=== PATIENT | female | born 1940 | race African-American/Black ===

== ENCOUNTER → 2019-10-25 | Day surgery (SDC) | payer BC ==
--- NOTE | 2019-10-22 11:16 | Opthalmology H&P ---
Ophthalmology H&P H&P Chief Complaint: decreased vision in left eye HPI Vision Affects Ability to: read, focus/use eyes together Past Ocular History: retinal problems - Drusen OU, other HPI Narrative Blurry vision Exam Visual Acuity: OD20/30 OS 20/160 Tension: OD15 OS 12 Eye Exam: normal OU: external exam, palpebral fissure-width, marginal reflex distance, levator function, corneas, anterior chambers; findings: lens - NS Cataracts OU, fundus exam - DRUSEN OU Assessment/Plan Treatment Plan: cataract extraction w/ lens implant Goals of Treatment: improvement of vision, enhance quality of life Attestation Attestation The risks and benefits of the surgery as well as alternative procedures were explained to the patient in detail. Emmanuel Cevallos MD Oct 22, 2019 11:16
--- NOTE | 2019-10-22 11:18 | Pre-Procedure Note/Attestation ---
Pre-Procedure Note/Attestation Complete Prior to Procedure Planned Procedure: left Procedure Narrative: Cataract extraction with IOL implant left eye Indications for Procedure Pre-Operative Diagnosis: Nuclear sclerotic cataract left eye Attestation I attest that I discussed the nature of the procedure; its benefits; risks and complications; and alternatives (and the risks and benefits of such alternatives ), prior to the procedure, with the patient (or the patient's legal sales representative public utilities). I attest that, if there was a reasonable possibility of needing a blood transfusion, the patient (or the patient's legal sales representative public utilities) was given the [facility] standardized written summary, pursuant to the Boris Tomas Blood Safety Act ([place] Health and Safety Code # 1645, as amended). I attest that I re-evaluated the patient just prior to the surgery and that there has been no change in the patient's H&P, except as documented below: Emmanuel Cevallos MD Oct 22, 2019 11:18
[2019-10-25] VITALS (10 sets, daily range): BP systolic 127–154; BP diastolic 70–82
[~2019-10-25] VITALS: Ht 157.5 cm; Wt 74.8 kg
[~2019-10-25] MED LIST: ALBUTEROL SULF8.5 G1 INH; AMLODIPINE BESYL5 MG ORAL; Akten 3.5% 1ml Btl LEFT EYE ONE; BSS 15ml BTL ONE; BSS 500ml btl ONE; BUTALB-ACETAMI1 EAC1 PO; DiphenhydrAMINE 50mg/ml Inj IVP PRN; EPINEPHrine 1mg/1ml Amp ONE; FLOVENT2 PUFF2 INH; GABAPENTIN100 MG ORAL; LOSARTAN POTASS25 MG ORAL; LR 1000ml 1,000 ML IVLG SCH; LR 1000ml ONE; NS Irrig 1000ml ONE; Povidone-Iodine 5% opth solution ONE; Proparacaine 0.5% Opth Soln 15ml LEFT EYE ONE; SIMVASTATIN20 MG ORAL; Sodium Hyaluronate 10 mg/ml 0.85ml ONE; Sterile Water Irrig 1000ml IRRIG ONE; Tetracaine 0.5% Opth 4ml Soln LEFT EYE ONE; Vit D PO; fentaNYL 100 mcg/2 mL IV ONE; fentaNYL 100 mcg/2 mL IV PRN
[2019-10-25] MEDS: Tobramycin Op Soln 0.3% 5ml LEFT EYE SCH ×3 (08:03→08:33)
[2019-10-25] MEDS: Phenylephrine 10% Opth Soln 5ml LEFT EYE SCH ×3 (08:03→08:32)
[2019-10-25] MEDS: Tropicamide 1% Opth 15ml Soln LEFT EYE SCH ×3 (08:03→08:33)
[2019-10-25] MEDS: Cyclopentolate 1% Opth Sol 2ml LEFT EYE SCH ×3 (08:03→08:32)
--- NOTE | 2019-10-25 09:53 | Anethesia Preoperative Eval ---
Elise Coburn MD 10/25/19 0953: Anesthesia Pre-op PMH/ROS General Date of Evaluation: Oct 25, 2019 Anesthesiologist: Almas ASA Score: ASA 3 Mallampati Score Class I : Soft palate, uvula, fauces, pillars visible Class II: Soft palate, uvula, fauces visible Class III: Soft palate, base of uvula visible Class IV: Only hard plate visible Mallampati Classification: Class III Surgeon: Ban Diagnosis: Left cataract Surgical Procedure: Left cataract extraction wtih IOL Anesthesia History: none Family History: no anesthesia problems Allergies: Coded Allergies: EGG (Verified Allergy, Severe, swelling; rash, 10/22/19) CIPROFLOXACIN (Verified Allergy, Intermediate, "produced clotting factor problem", 10/22/19) NSAIDS (NON-STEROIDAL ANTI-INFLAMMA (Verified Allergy, Intermediate, bleeding, 10/22/19) ASPIRIN (Verified Adverse Reaction, Intermediate, bleeding, 10/22/19) Uncoded Allergies: millet (Allergy, Intermediate, swelling; hives, 10/22/19) Medications: see eMAR Patient NPO?: Yes NPO Date: Oct 25, 2019 NPO Time: 00:00 Past Medical History Cardiovascular: Reports: HTN, other - HLD; Denies: CAD, [place], valve dz, arrhythmia Pulmonary: Reports: asthma; Denies: COPD, JOHANNE, other Gastrointestinal/Genitourinary: Denies: GERD, CRI, ESRD, other Neurologic/Psychiatric: Denies: dementia, CVA, depression/anxiety, TIA, other Endocrine: Reports: DM; Denies: hypothyroidism, steroids, other HEENT: Reports: cataract (L); Denies: cataract (R), glaucoma, [place] (L), [place] (R), other Hematology/Immune: Reports: anemia; Denies: DVT, bleeding disorder, other Musculoskeletal/Integumentary: Reports: OA; Denies: RA, DJD, DDD, edema, other PSxH Narrative: CHARMAINE, left knee arthroscopy, right shoulder replacement, breast sx, oral sx Anesthesia Pre-op Phys. Exam Physician Exam Last Vital Signs Date Time Temp Pulse Resp B/P (MAP) Pulse Ox O2 Delivery O2 Flow Rate FiO2 10/25/19 08:27 Room Air 10/25/19 08:11 97.2 83 18 143/76 100 Constitutional: NAD Cardiovascular: RRR Respiratory: CTA Airway Exam Mallampati Score: Class II MO: full ROM: full Anesthesia Pre-op A/P Labs Chemistry Test 10/25/19 08:10 POC Whole Blood Glucose Pending Studies Pre-op Studies: EKG - sr Risk Assessment & Plan Assessment: ASA III Plan: MAC Status Change Before Surgery: No Pre-Antibiotics Drug: N/A Denys Mena MD 10/25/19 1012: Anesthesia Pre-op PMH/ROS General Date of Evaluation: Oct 25, 2019 Time of Evaluation: 10:09 Anesthesiologist: Rajesh ASA Score: ASA 3 Mallampati Classification: Class II Surgeon: Ban Diagnosis: L eye cataract Surgical Procedure: Cataract extraction Anesthesia History: none Family History: no anesthesia problems Allergies: Coded Allergies: EGG (Verified Allergy, Severe, swelling; rash, 10/22/19) CIPROFLOXACIN (Verified Allergy, Intermediate, "produced clotting factor problem", 10/22/19) NSAIDS (NON-STEROIDAL ANTI-INFLAMMA (Verified Allergy, Intermediate, bleeding, 10/22/19) ASPIRIN (Verified Adverse Reaction, Intermediate, bleeding, 10/22/19) Uncoded Allergies: millet (Allergy, Intermediate, swelling; hives, 10/22/19) Medications: see eMAR Patient NPO?: Yes Past Medical History Cardiovascular: Reports: HTN; Denies: CAD, [place], valve dz, arrhythmia, other Pulmonary: Reports: asthma; Denies: COPD, JOHANNE, other Gastrointestinal/Genitourinary: Reports: GERD; Denies: CRI, ESRD, other Neurologic/Psychiatric: Reports: depression/anxiety, other - chronic pain; Denies: dementia, CVA, TIA Endocrine: Reports: DM, hypothyroidism; Denies: steroids, other HEENT: Reports: cataract (L), cataract (R); Denies: glaucoma, [place] (L), [place] (R), other Hematology/Immune: Reports: anemia - mild; Denies: DVT, bleeding disorder, other Musculoskeletal/Integumentary: Reports: OA Other: other - overweight PMH Narrative: as above PSxH Narrative: See H&P Anesthesia Pre-op Phys. Exam Physician Exam Constitutional: NAD Neurologic: CN 2-12 intact Cardiovascular: RRR, no M/R/G Respiratory: CTA Gastrointestinal: S/NT/ND Airway Exam Mallampati Score: Class II MO: limited Neck: stiff ROM: limited Teeth: missing Dentures: no upper, no lower Anesthesia Pre-op A/P Labs see chart Studies Pre-op Studies: EKG - SR Risk Assessment & Plan Assessment: ASA 3 Plan: MAC Status Change Before Surgery: No Elise Coburn MD Oct 25, 2019 09:53 Denys Mena MD Oct 25, 2019 10:12
--- NOTE | 2019-10-25 11:40 | Immediate Post-Op Evaluation ---
Immediate Post-Op Evalulation Immediate Post-Op Evalulation Procedure: L eye cataract extraction with IOL Date of Evaluation: Oct 25, 2019 Time of Evaluation: 11:38 IV Fluids: 300 Blood Products: none Estimated Blood Loss: none Urinary Output: none Blood Pressure Systolic: 136 Blood Pressure Diastolic: 72 Pulse Rate: 86 Respiratory Rate: 18 O2 Sat by Pulse Oximetry: 99 Temperature (Fahrenheit): 97.6 Pain Score (1-10): 1 Nausea: No Vomiting: No Complications none Patient Status: awake, patent, none Hydration Status: adequate Denys Mena MD Oct 25, 2019 11:40
--- NOTE | 2019-10-25 13:12 | 48 Hour Post Anesthesia Eval ---
Post Anesthesia Evaluation Procedure: L eye cataract extraction with IOL Date of Evaluation: Oct 25, 2019 Time of Evaluation: 13:11 Blood Pressure Systolic: 136 0: 74 Pulse Rate: 68 Respiratory Rate: 20 Temperature (Fahrenheit): 97.6 O2 Sat by Pulse Oximetry: 99 Airway: patent Nausea: No Vomiting: No Pain Intensity: 1 Hydration Status: adequate - stable Cardiopulmonary Status: stable Mental Status/LOC: patient returned to baseline Follow-up Care/Observations: n/a Post-Anesthesia Complications: none Follow-up care needed: ready to discharge Denys Mena MD Oct 25, 2019 13:12
--- NOTE | 2019-10-25 16:53 | Brief Operative Note ---
Immediate Post Operative Note Operative Note Chief Complaint: Blurry vision Pre-op Diagnosis: Nuclear sclerotic cataract left eye Procedure: Cataract extraction with IOL implant left eye Post-op Diagnosis: Pseudo OS Findings: consistent w/pre-op dx studies Surgeon: Emmanuel Cevallos MD Anesthesiologist: Denys Mena MD/ Elise Coburn MD Anesthesia: MAC Specimen: none Complications: none Condition: stable Fluids: LR Estimated Blood Loss: none Drains: none Implant(s) used?: Yes - IOL-OS Emmanuel Cevallos MD Oct 25, 2019 16:53
--- NOTE | 2019-10-25 16:55 | Operative Note - PDOC ---
Operative Note Operative Note Date of Operation/Procedure: Oct 25, 2019 Chief Complaint: Blurry vision Pre-op Diagnosis: Nuclear sclerotic cataract left eye Procedure: Cataract extraction with IOL implant left eye Post-op Diagnosis: Pseudo OS Operative Findings: consistent w/pre-op dx studies Surgeon: Emmanuel Cevallos MD Anesthesiologist: Denys Mena MD/ Elise Coburn MD Anesthesia: MAC Specimen: none Complications: none Condition: stable Fluids: LR Estimated Blood Loss: none Drains: none Implant(s) used?: Yes - IOL-OS Indications for Procedure Nuclear sclerotic cataract left eye Description of Procedure This patient has been complaining visually significant cataract in the left eye with the best corrected visual acuity of 20/160 under moderate glare conditions worse. The patient complains of difficulties with glare in performing activities of daily living and wants to manage personal affairs with comfort and accuracy and see well enough to move with safety at home and outdoors independently. The risks, benefits and alternatives of the procedure were discussed with the patient in the office prior to scheduling surgery. All questions from the patient were answered after the surgical procedure was explained in detail. The risks of the procedure as explained to the patient include, but are not limited to, pain, infection, bleeding, loss of vision, retinal detachment, need for further surgery, loss of lens nucleus, double vision, etc. Alternative procedures were discussed which include, to do nothing or seek a second opinion. Informed consent for this procedure was obtained from the patient. The patient was referred to a primary care physician for a cardiopulmonary clearance prior to surgery, after proper evaluation was done patient was properly scheduled for outpatient surgery. The patient was brought to the operating room where the anesthesiologist established I.V. lines and cardiac monitoring leads. Mild intravenous sedation was administered. The patient was then prepared with a 5% solution of povidone -iodine to the conjunctival fornix and lashes, and a 5% solution of povidone- iodine to the lids and periorbital skin. The patient was then draped in the usual sterile fashion. A lid speculum was then placed in the operative eye. A keratome blade was then used to create a biplanar incision into the anterior chamber. Viscoelastics was then instilled into the anterior chamber. A capsulorrhexis was then fashioned with an utrata forceps. BSS and a cannula were then used to hydrodissect and hydro delineate the lens. Paracentesis incision was made at 3 o'clock with sharp blade. The phacoemulsification unit, after being properly adjusted and tested, was then used to emulsify the nucleus. Residual cortical material was aspirated with the irrigation and aspiration unit. Healon was then instilled into the anterior chamber. The corneal wound was then enlarged to the size of the optic with the wilfredo keratome blade. The intraocular lens was then inspected for right power and size and thought to be satisfactory. Then the lens was gently placed in the capsular bag. Positioning within the capsular bag was confirmed by direct visualization. Optic centration was accomplished with a Sinskey hook. Viscoelastics was removed from the anterior chamber using the irrigation and aspiration unit. The corneal wound was then tested for leaks and none were found. The lid speculum were then removed. Sponge and needle counts were correct. An eye patch and shield were placed over the operative eye. The patient was taken to the recovery room in stable condition. There were no complications. The patient tolerated the procedure well. The patient was then transferred to the ambulatory surgery unit in stable and satisfactory condition , was given detailed written instructions and asked to follow up in the office the next day. Emmanuel Cevallos MD Oct 25, 2019 16:55
== END | disposition home or self-care (01) ==
LOC: SUR 06:12
DX: H25.12 Age-related nuclear cataract, left eye (principal); I10 Essential (primary) hypertension; E78.5 Hyperlipidemia, unspecified; E11.9 Type 2 diabetes mellitus without complications; M19.90 Unspecified osteoarthritis, unspecified site; Z96.611 Presence of right artificial shoulder joint; D64.9 Anemia, unspecified; Z91.012 Allergy to eggs; Z88.6 Allergy status to analgesic agent; E03.9 Hypothyroidism, unspecified; F32.9 Major depressive disorder, single episode, unspecified; F41.9 Anxiety disorder, unspecified
CPT/HCPCS: 66984; 82962; 94003; J0171; J2704; J3010; J3370; J7120; U0002; V2632; 94150